=== PATIENT | female | born 1940 | race Caucasian/White ===

== ENCOUNTER 2016-07-31 23:11 | Emergency (ER) | payer OTHER ==
[~2016-07-31] VITALS: Ht 152.4 cm; Wt 66.0 kg
[~2016-07-31 23:11] MED LIST: ALPR-140 PO; AMI25 PO; AMLO-218 PO; CHLO25TA13 PO; LISI10TA2 PO; RANI300C PO; SITA100T8 PO; SMV40T PO; SYN75 PO; TERA5CAP3 PO
[2016-07-31 23:20] VITALS: Ht 152.4 cm; Wt 66.0 kg
--- NOTE | 2016-07-31 23:30 | ERA ---
ER Documentation Chief Complaint Date/Time DATE: 07/31/16 TIME: 23:29 Chief Complaint low blood sugar at home, 40 about 30 minutes ago HPI The patient is a 75-year-old female, presenting to the ER because of incoherent around 1030pm. Her daughter checked her glucose, it was only 35. She was given soda and food to eat, the glucose went up to 40. However the daughter to give 20 units of Lantus subcu. she normally takes NovoLog before meals and Januvia in addition to Lantus. She denies headache, neck pain, chest pain, abdominal pain, vomiting, dysuria, diarrhea. Accu-Chek in the ER was 160. He does not smoke nor drink Past medical history: Hypothyroidism, hypertension, anxiety, dyslipidemia, diabetes mellitus Past surgical history: Appendectomy ROS All systems reviewed and are negative except as per history of present illness. Medications Home Meds Reported Medications Amitriptyline Hcl* (Elavil*) 25 Mg Tab, 25 MG PO DAILY 01/24/13 Levothyroxine Sodium* (Synthroid*) 75 Mcg Tablet, 75 MCG PO DAILY 05/12/12 Amlodipine Besylate* (Norvasc*) 10 Mg Tablet, 10 MG PO DAILY 05/12/12 Ranitidine Hcl (Taladine) 300 Mg Capsule, 300 MG PO DAILY 05/12/12 Simvastatin (Simvastatin) 40 Mg Tablet, 40 MG PO HS 05/12/12 Alprazolam (Alprazolam XR) 0.5 Mg Tab.sr.24h, PO Q12H PRN 05/12/12 Sitagliptin* (Januvia*) 100 Mg Tablet, 100 MG PO DAILY 05/12/12 Chlorthalidone* (Chlorthalidone*) 25 Mg Tablet, 25 MG PO DAILY 05/12/12 Lisinopril* (Lisinopril*) 10 Mg Tablet, 10 MG PO DAILY 05/12/12 Terazosin Hcl* (Terazosin Hcl*) 5 Mg Capsule, 5 MG PO HS 05/12/12 Allergies Allergies: Coded Allergies: No Known Allergy (Verified , 07/31/16) PMhx/Soc History of Surgery: Yes (PANCREAS, R KNEE, EYE) Hx Cardiac Disorders: Yes (HTN, CHOLESTEROL) Hx Miscellaneous Medical Probl: Yes (DM) Hx Alcohol Use: No Hx Substance Use: No Hx Tobacco Use: No Physical Exam Vitals Vital Signs Date Time Temp Pulse Resp B/P Pulse Ox O2 Delivery O2 Flow Rate FiO2 08/01/16 04:00 57 146/54 99 Room Air 08/01/16 03:00 59 151/71 98 Room Air 08/01/16 02:00 56 141/43 97 Room Air 08/01/16 01:59 97.6 55 20 138/55 99 Room Air 08/01/16 00:19 54 19 141/48 98 Room Air 07/31/16 23:20 96.9 56 20 149/68 98 Physical Exam Const: No acute distress. Head: Atraumatic. Eyes: Normal Conjunctiva. ENT: Normal External Ears, Nose and Mouth. Neck: Full range of motion. No meningismus. Resp: Clear to auscultation bilaterally. Cardio: Regular rate and rhythm, no murmurs. Abd: Soft, non distended, normal bowel sounds, non tender. Skin: No petechiae or rashes. Back: No midline or flank tenderness. Ext: No cyanosis, or edema. Neur: Awake and alert. No focal deficit Psych: Normal Mood and Affect. Result Diagram: 07/31/16 2330 07/31/16 2330 Results 24 hrs Laboratory Tests Test 07/31/16 23:27 07/31/16 23:30 08/01/16 03:55 08/01/16 05:09 Bedside Glucose 116mg/dL 186mg/dL White Blood Count 12.910^3/ul Red Blood Count 4.8110^6/ul Hemoglobin 13.5g/dl Hematocrit 39.6% Mean Corpuscular Volume 82.3fl Mean Corpuscular Hemoglobin 28.1pg Mean Corpuscular Hemoglobin Concent 34.1g/dl Red Cell Distribution Width 14.5% Platelet Count 72674^3/UL Mean Platelet Volume 10.5fl Neutrophils % 66.6% Lymphocytes % 22.6% Monocytes % 10.3% Eosinophils % 0.0% Basophils % 0.3% Nucleated Red Blood Cells % 0.0/100WBC Neutrophils # 8.610^3/ul Lymphocytes # 2.910^3/ul Monocytes # 1.310^3/ul Eosinophils # 0.010^3/ul Basophils # 0.010^3/ul Nucleated Red Blood Cells # 0.010^3/ul Prothrombin Time 13.9Sec Prothrombin Time Ratio 1.1 INR International Normalized Ratio 1.07 Activated Partial Thromboplast Time 39.4Sec Sodium Level 134mmol/L Potassium Level 3.2mmol/L Chloride Level 94mmol/L Carbon Dioxide Level 30mmol/L Anion Gap 13 Blood Urea Nitrogen 32mg/dl Creatinine 1.30mg/dl Glucose Level 149mg/dl Calcium Level 9.2mg/dl Bedside Urine pH (LAB) 6.5 Bedside Urine Protein (LAB) Negative Bedside Urine Glucose (UA) 0.25% Bedside Urine Ketones (LAB) Negative Bedside Urine Blood Negative Bedside Urine Nitrite (LAB) Negative Bedside Urine Leukocyte Esterase (L Negative Current Medications Medications (Trade) Dose Ordered Sig/Evan Route PRN Reason Start Time Stop Time Status Last Admin Dose Admin Sodium Chloride (NS) 500 ml @ 500 mls/hr Q1H ONCE IV 08/01/16 01:00 08/01/16 01:59 DC 08/01/16 01:05 Potassium Chloride 20 meq 20 meq ONCE STAT PO 08/01/16 00:51 08/01/16 00:53 DC 08/01/16 01:04 Sodium Chloride (NS) 500 ml @ 500 mls/hr Q1H ONCE IV 08/01/16 03:00 08/01/16 03:59 DC 08/01/16 03:52 Procedures/[place] [id number] Radiology Main Line: [phone] DIAGNOSTIC IMAGING REPORT Patient: TIGIST CORTES : 1940 Age: 75 Sex: F MR #: [id number] DOS: 07/31/16 2340 Ordering MD: RUDY CAMEJO MD Location: E/R Room/Bed: PROCEDURE: XR Chest. CLINICAL INDICATION: Chest pain. TECHNIQUE: Portable AP semi erect view of the chest was obtained. COMPARISON: 09/02/2014 FINDINGS: The cardiomediastinal silhouette is borderline enlarged, likely accentuated by suboptimal inspiratory response and technique. Low lung volumes are present without evidence of lobar infiltrate. Mild prominence of the pulmonary interstitium cannot entirely exclude vascular congestion. Small pleural effusions are suggested. The osseous structures are intact with no evidence for acute abnormality. Calcification of the aortic arch is again seen RPTAT:HJJR IMPRESSION: 1. Suboptimal inspiratory response, low lung volumes potentially causing accentuation of the cardiac silhouette but interstitial edema and small pleural effusions with congestive heart failure pattern are difficult to exclude in the proper clinical setting. Findings are all new compared to the previous exam. 2. Aortic atherosclerosis is present. Gold José Physician Date Time Electronically viewed and signed by Gold José Physician on 08/01/2016 00:20 JR/ CC: RUDY CAMEJO MD EKG: Read by emergency physician Rate/Rhythm: Sinus bradycardia 55 beats/min QRS, ST, T-waves: No ST elevation, no T inversion, right bundle branch block , inferior lateral T abnormality Impression: Abnormal EKG MEDICAL MAKING DECISION: The patient is a 75-year-old female, presenting with acute hypoglycemia, acute dehydration, acute kidney injury, acute hypokalemia. She was treated with 500 mL normal saline, potassium chloride 20 mEq p.o. and meals to eat The differential diagnoses considered include but are not limited to medication non-compliance, alcohol intoxication or withdrawal, drug intoxication or withdrawal, endocrine disorder, trauma, CVA, tumor, metabolic encephalopathy, septic encephalopathy. Departure Diagnosis: Primary Impression: Hypoglycemia Additional Impressions: Hypokalemia Dehydration Acute kidney injury Condition: Stable Comments I discussed the findings with the patient. I discussed the patient with her physician Dr. Zacarias at 3 am who was made aware of the lab, the treatment, the patient condition. She is coming to the ER to evaluate patient RUDY CAMEJO MD Jul 31, 2016 23:30
[2016-08-01 00:06] LABS: ADD SCAN DIFF NO
[2016-08-01 00:08] LABS: BASOPHILS % 0.3 % (0.0-2.0); HEMATOCRIT 39.6 % (37.0-47.0); HEMOGLOBIN 13.5 g/dl (12.0-16.0); LYMPHOCYTES # 2.9 10^3/ul (0.8-2.9); LYMPHOCYTES % 22.6 % (15.0-51.0); MEAN CORPUSCULAR HEMOGLOBIN 28.1 pg (29.0-33.0); MEAN CORPUSCULAR HGB CONC 34.1 g/dl (32.0-37.0); MEAN CORPUSCULAR VOLUME 82.3 fl (82.0-101.0); MEAN PLATELET VOLUME 10.5 fl (7.4-10.4); MONOCYTE # 1.3 10^3/ul (0.3-0.9); MONOCYTES % 10.3 % (0.0-11.0); NEUTROPHIL # 8.6 10^3/ul (1.6-7.5); NEUTROPHILS % 66.6 % (39.0-77.0); PLATELET COUNT 334 10^3/UL (140-415); RED BLOOD COUNT 4.81 10^6/ul (4.20-5.40); RED CELL DISTRIBUTION WIDTH 14.5 % (11.5-14.5); WHITE BLOOD COUNT 12.9 10^3/ul (4.8-10.8)
--- NOTE | 2016-08-01 00:20 | RADRPT ---
PROCEDURE: XR Chest. CLINICAL INDICATION: Chest pain. TECHNIQUE: Portable AP semi erect view of the chest was obtained. COMPARISON: 09/02/2014 FINDINGS: The cardiomediastinal silhouette is borderline enlarged, likely accentuated by suboptimal inspirator y response and technique. Low lung volumes are present without evidence of lobar infiltrate. Mild prominence of the pulmonary interstitium cannot entirely exclude vascular congestion. Small pleural effusions are suggested. The osseous structures are intact with no evidence for acute abnormality. Calcification of the aortic arch is again seen RPTAT:HJJR IMPRESSION: 1. Suboptimal inspiratory response, low lung volumes potentially causing accentuation of the cardiac silhouette but interstitial edema and small pleural effusions with congestive heart failure pattern are difficult to exclude in the proper clinical setting. Findings are all new compared to the previ ous exam. 2. Aortic atherosclerosis is present. Physician Kellen Date Time Electronically viewed and signed by Physician Kellen on 08/01/2016 00:20 /
[2016-08-01 00:21] LABS: INR 1.07; PROTIME 13.9 Sec (12.2-14.2); PT RATIO 1.1
[2016-08-01 00:22] LABS: PARTIAL THROMBOPLASTIN TIME 39.4 Sec (25.0-35.0)
[2016-08-01 00:25] LABS: CALCIUM 9.2 mg/dl (8.4-10.2); CREATININE 1.3 mg/dl (0.44-1.00); POTASSIUM 3.2 mmol/L (3.5-5.1)
[2016-08-01] MEDS ORDERED: POTASSIUM CHLORIDE (SR) 20 MEQ TAB PO STA (00:51)
[2016-08-01] MEDS ORDERED: SOD CHLORIDE 0.9% 500 ML IV ONE ×2 (01:00→03:00)
[2016-08-01 03:56] LABS: URINE BLOOD (Dip) POC Negative (NEGATIVE)
--- NOTE | 2016-08-01 05:44 | PDOCDIS ---
Discharge Instructions CONDITION Patient Condition: Stable HOME CARE INSTRUCTIONS: Special Diet: 1800 ADA diet ACTIVITY: Activity Restrictions: No Restrictions FOLLOW UP/APPOINTMENTS Appointments follow up with catering barista Dr Enrique by Saturday 08/05 Follow up with PCP within 2 to 3 days TOSIN VELASQUEZ Aug 01, 2016 05:44
[2016-08-01 05:55] VITALS: BP 138/68; PULSE 60; RESP 20; TEMP 97.7
[2016-08-01 05:55] LABS: CREATININE 1.04 mg/dl (0.44-1.00)
[2016-08-01 05:56] LABS: CALCIUM 8.9 mg/dl (8.4-10.2)
--- NOTE | 2016-08-01 06:50 | CONS ---
Date/Time of Note Date/Time of Note DATE: 08/01/16 TIME: 06:43 Assessment/Plan Assessment/Plan Additional Assessment/Plan 75-year-old female: 1. Hypoglycemic event, resolved by the time of presentation to emergency department. Patient's daughter educated, follow-up with outpatient steward/stewardess third class and primary care physician 2. Hypertension resume home medications Disposition: Patient discharged from emergency department in stable condition, repeat BMP normalized, blood sugars have stayed above 140. Home health to be ordered. Consultation Date/Type/Reason Admit Date/Time Date of Consultation: Aug 01, 2016 Type of Consultation: Internal medicine Reason for Consultation Hypoglycemia Hx of Present Illness 64-year-old female with history of diabetes mellitus, hypertension who was brought into the emergency department after episode of hypoglycemia. According to the daughter at the bedside the patient blood sugars have been fluctuating, she had her Januvia this morning, she gets 15 units of NovoLog with meals, after dinner and around 1030 last night the patient was noted to have a blood sugar of 35 which was treated appropriately by the daughter but she mistakenly also given her Lantus 20 units. Because of concern of further hypoglycemia she brought the patient to the emergency department. The patient was symptomatic at home with blood sugars of 35, she was having diaphoresis and tremors which were all resolved by the time she came to the emergency department , her blood sugar upon arrival was 116. She was fed at that time, her repeat blood sugar was 140, she was given 2 boluses of 500 cc of normal saline and 20 mEq of potassium chloride to correct for hypokalemia. Repeat BMP is much improved and back to her baseline, repeat blood sugar this morning is 189. Patient has no further hypoglycemic episodes therefore she is being discharged home. I have instructed to the daughter to continue the Januvia since her renal function seems to be stable, continue the NovoLog with meals sliding scale with a lower amount to be given at dinnertime since the patient does not eat much, to check her blood sugars prior to Lantus administration and if the blood sugars are anything less than 120 she is should hold off of giving Lantus and recheck the blood sugar an hour or 2 afterwards. Her daughter did express understanding. She will follow up with the patient's steward/stewardess third class in the next week and with her PCP within 2-3 days. I will also ask her IPA group to arrange for home health RN visit in the next day or 2. Past Medical History Diabetes mellitus Hypertension Social History Alcohol Use: none Smoking Status: Unknown if ever smoked Drug Use: none Exam/Review of Systems Vital Signs Vitals Vital Signs Date Time Temp Pulse Resp B/P Pulse Ox O2 Delivery O2 Flow Rate FiO2 08/01/16 05:55 97.7 60 20 138/68 99 Room Air Exam Constitutional: alert, oriented, well developed Respiratory: clear to auscultation, normal air movement Cardiovascular: nl pulses, regular rate and rhythm Gastrointestinal: non-tender, soft Musculoskeletal: nl extremities to inspection Extremities: normal pulses, other (No edema clubbing or cyanosis) Neurological: TRIM TECHNICIAN II-XII intact, nl mental status, nl speech, nl strength Results Result Diagram: 07/31/16 2330 08/01/16 0515 Results 24 hrs Laboratory Tests Test 07/31/16 23:27 07/31/16 23:30 08/01/16 03:55 08/01/16 05:09 Bedside Glucose 116 186 White Blood Count 12.9 H Red Blood Count 4.81 Hemoglobin 13.5 Hematocrit 39.6 Mean Corpuscular Volume 82.3 Mean Corpuscular Hemoglobin 28.1 L Mean Corpuscular Hemoglobin Concent 34.1 Red Cell Distribution Width 14.5 Platelet Count 334 Mean Platelet Volume 10.5 #H Neutrophils % 66.6 Lymphocytes % 22.6 Monocytes % 10.3 Eosinophils % 0.0 Basophils % 0.3 Nucleated Red Blood Cells % 0.0 Neutrophils # 8.6 H Lymphocytes # 2.9 Monocytes # 1.3 H Eosinophils # 0.0 Basophils # 0.0 Nucleated Red Blood Cells # 0.0 Prothrombin Time 13.9 Prothrombin Time Ratio 1.1 INR International Normalized Ratio 1.07 Activated Partial Thromboplast Time 39.4 H Sodium Level 134 L Potassium Level 3.2 L Chloride Level 94 L Carbon Dioxide Level 30 Anion Gap 13 Blood Urea Nitrogen 32 H Creatinine 1.30 H Glucose Level 149 Calcium Level 9.2 Bedside Urine pH (LAB) 6.5 Bedside Urine Protein (LAB) Negative Bedside Urine Glucose (UA) 0.25% H Bedside Urine Ketones (LAB) Negative Bedside Urine Blood Negative Bedside Urine Nitrite (LAB) Negative Bedside Urine Leukocyte Esterase (L Negative Test 08/01/16 05:15 Sodium Level 136 Potassium Level 4.0 Chloride Level 97 Carbon Dioxide Level 27 Anion Gap 16 Blood Urea Nitrogen 26 H Creatinine 1.04 H Glucose Level 187 Calcium Level 8.9 TOSIN VELASQUEZ Aug 01, 2016 06:49
== END 2016-08-01 05:56 | disposition home or self-care (01) ==
LOC: E/R 23:11
DX: E11.649 Type 2 diabetes mellitus with hypoglycemia without coma (principal); E87.6 Hypokalemia; E86.0 Dehydration; N17.9 Acute kidney failure, unspecified; I10 Essential (primary) hypertension; E03.9 Hypothyroidism, unspecified; Z79.84 Long term (current) use of oral hypoglycemic drugs; Z79.4 Long term (current) use of insulin
CPT/HCPCS: 36415; 71010; 80048; 81003; 82962; 85025; 85610; 85730; 93005; 99285; J7040